=== PATIENT | female | born 1950 | race Asian ===

== ENCOUNTER 2016-07-21 01:31 | Observation (INO) | payer MEDICARE, OTHER ==
[~2016-07-21] VITALS: Ht 157.5 cm; Wt 47.3 kg
[~2016-07-21 01:31] MED LIST: ATENOLOL50 MG PO; B-12; CELEXA 20MG20 MG/TAB PO; ESTROGENS0.3 MG PO; FISH OIL CONCEN1 SGL PO; FOSAMAX70 MG PO; MOBIC7.5 M1 PO; MULTI VITAMINS1 TAB PO; MULTIPLE VITAMI1 CAP PO; NEXIUM 40MG40 MG PO; OMEGA 3 KRILL OIL; PCN-200200 MG PO; PREDNISONE10 M1 PO; PREMARIN0.3 MG PO; SIMVISTATIN; TENORMIN 2525 MG/TAB PO; TENORMIN 5050 MG/TAB PO; TYLENOL PM EXTR1 TA1 PO; VITAMIN D31000 IU PO; ZYRTEC10 M1 PO; [UNRECOGNIZED DRUG - REMARK]; [UNRECOGNIZED DRUG - REMARK]
[2016-07-21 01:52] LABS: BASO % 0.3 % (0.0-2.0); EOS % 0.2 % (0-4.0); GRAN # 12.3 (1.4-6.5); GRAN % 86.9 % (42.2-75.2); HEMATOCRIT 35.9 % (37.0-47.0); HEMOGLOBIN 11.5 g/dl (12.5-16.0); LYMPH # 1.2 (1.2-3.4); LYMPH % 8.8 % (20.0-51.0); MEAN CELL VOLUME 88 fl (80.0-100.0); MEAN CORPUSCULAR HEMOGLOBIN 28 pg (27.0-31.0); MEAN CORPUSCULAR HGB CONC 32 g/dl (33.0-37.0); MONO # 0.5 (0.1-0.6); MONO % 3.3 % (1.7-9.3); PLATELET COUNT 335 K/mm3 (130-400); REDCELL DISTRIBUTION WIDTH-CV 12.6 % (11.5-14.5); WHITE BLOOD COUNT 14.1 K/mm3 (4.8-10.8)
[2016-07-21 02:04] LABS: ADJUSTED CALCIUM 9.5 mg/dL (8.4-10.2); ALBUMIN 4.2 gm/dL (3.5-5.0); BILIRUBIN,TOTAL 0.8 mg/dL (0.0-1.0); CALCIUM 9.7 mg/dL (8.4-10.2); CREATININE, serum 0.71 mg/dL (0.52-1.25); POTASSIUM 3.9 mmol/L (3.4-5.0); TOTAL PROTEIN 7.5 gm/dL (6.4-8.2)
[2016-07-21 03:06] VITALS: BP 143/55; PULSE 99; TEMP 97.3
[2016-07-21 04:04] LABS: PH 7 (5-8); SQUAMOUS EPITHELIAL 0-2 /hpf; URINE APPEARANCE Clear; URINE BACTERIA Rare /hpf; URINE BILIRUBIN Negative (NEGATIVE); URINE BLOOD Negative (NEGATIVE); URINE COLOR Yellow; URINE GLUCOSE Negative (NEGATIVE); URINE KETONE Trace (NEGATIVE); URINE RBC 0-2 /hpf; URINE UROBILINOGEN Negative (NEGATIVE); URINE WBC 0-2 /hpf
[2016-07-21 06:10] VITALS: BP 101/48; PULSE 98; TEMP 98.1
[2016-07-21 09:26] VITALS: BP 127/63; PULSE 103; TEMP 97.2
[2016-07-21 13:33] VITALS: BP 106/52; PULSE 99; TEMP 98.4
== END 2016-07-21 16:20 | disposition home or self-care (01) ==
LOC: COL.ER 01:31 → SURG 01:56
PROVIDERS: Emergency Medicine
DX: K56.60 Unspecified intestinal obstruction (principal); R11.2 Nausea with vomiting, unspecified
CPT/HCPCS: G0378; J1170; J2405; J3010; J7030; Q9967

== ENCOUNTER 2016-12-24 10:30 | Outpatient (RCR) | payer MEDICARE, OTHER | END 2016-12-24 12:15 | disposition still patient (30) | LOC: WSPT 10:30 | DX: R26.89 Other abnormalities of gait and mobility (principal) | CPT/HCPCS: G8978-GP; G8979-GP; G8980-GP ==